=== PATIENT | male | born 1960 | race Caucasian/White ===

== ENCOUNTER 2018-08-12 07:42 | Day surgery (SDC) | payer BC, OTHER ==
[2018-08-12] MEDS ORDERED: LR 1,000 ML IV ONE (07:54)
--- NOTE | 2018-08-12 08:48 | PDGENHP ---
History & Physical Chief Complaint: phx polyps History of Present Illness: hx large flat polyps Pertinent Past, Social, Family History: tobacco 1/2 pack poer day. no alcohol. FHx - aadopted. PMH- hypothyroid Relevant Physical Exam: A+Ox3. CTA. S1S2. +BS,. soft nt Cardiorespiratory Assessment: class 2
--- NOTE | 2018-08-12 08:54 | PDANEPAE ---
ANE History of Present Illness here for colonoscopy ANE Past Medical History - Cardiovascular History Hx Hypertension: No Hx Arrhythmias: No Hx Chest Pain: No Hx Coronary Artery / Peripheral Vascular Disease: No Hx CHF / Valvular Disease: No Hx Palpitations: No - Pulmonary History Hx COPD: No Hx Asthma/Reactive Airway Disease: No Hx Recent Upper Respiratory Infection: No Hx Oxygen in Use at Home: No Hx Sleep Apnea: No Sleep Apnea Screening Result - Last Documented: Negative - Neurologic History Hx Cerebrovascular Accident: No Hx Seizures: No Hx Dementia: No - Endocrine History Hx Diabetes: No - Renal History Hx Renal Disorders: No - Liver History Hx Hepatic Disorders: No - Neurological & Psychiatric Hx Hx Neurological and Psychiatric Disorders: No - Cancer History Hx Cancer: No - Congenital Disorder History Hx Congenital Disorders: No - GI History Hx Gastrointestinal Disorders: No - Other Health History Other Health History: none - Chronic Pain History Chronic Pain: No - Surgical History Prior Surgeries: none in last 5 yrs. colonoscopies ANE Review of Systems Review of Systems: - Exercise capacity METS (RN): 5 METS ANE Patient History - Allergies Allergies/Adverse Reactions: No Known Allergies Allergy (Verified 08/09/18 09:58) - Home Medications Home Medications: Synthroid 08/09/18 [Last Taken 08/12/18 06:00] - NPO status NPO Status: no food or drink >8 hours NPO Since - Liquids (Date): 08/11/18 NPO Since - Solids (Date): 08/11/18 - Anes Hx Anes Hx: no prior problems - Smoking Hx Smoking Status: Heavy smoker - Alcohol Use Alcohol Use: Rarely - Family Anes Hx Family Anes Hx: none Family Hx Anesthesia Complications: none ANE Labs/Vital Signs - Vital Signs Blood Pressure: 117/79 Heart Rate: 53 Respiratory Rate: 15 O2 Sat (%): 93 Height: 177.8 cm Weight: 74.843 kg ANE Physical Exam - Airway Neck exam: FROM Mallampati Score: Class 2 Mouth exam: normal dental/mouth exam - Pulmonary Pulmonary: no respiratory distress, clear to auscultation - Cardiovascular Cardiovascular: regular rate and rhythym, no murmur, rub, or gallop - ASA Status ASA Status: II ANE Anesthesia Plan Anesthesia Plan: GA with mask Total IV Anesthesia: Yes
[2018-08-12] MEDS ORDERED: PROPOFOL/EMULSION 500 MG/50 ML BOTTLE IV ONE (08:57)
[2018-08-12] MEDS ORDERED: NALOXONE HCL 0.4 MG/ML INJ IVP PRN (09:07)
--- NOTE | 2018-08-12 09:45 | POSTANESTH ---
Post Anesthetic Evaluation Cardiovascular Status: Normal, Stable, Similar to Pre-Op Cond Respiratory Status: Normal, Stable, Similar to Pre-op Cond. Level of Consciousness/Mental Status: Moderately Sleepy Pain Control: Adequate, Prn Tx Ordered Nausea/Vomiting Control: Adequate, Prn Tx Ordered Complications Possibly Related to Anesthesia: None Noted
--- NOTE | 2018-08-12 09:55 | GIREPORT ---
[facility] Surgical Services - Endoscopy Department Patient Name: Chalo Jackson Procedure Date: 08/12/2018 9:00 AM Patient Type: Outpatient Attending / ER Physician: Marcos Acosta MD Procedure: Colonoscopy Indications: High risk colon cancer surveillance: Personal history of adenoma (10 mm or greater in size) Providers: Marcos Acosta MD Medicines: Propofol per Anesthesia Complications: No immediate complications. Estimated blood loss: Minimal. Description of Procedure: After obtaining informed consent, the scope was passed under direct vis ion. Throughout the procedure, the patient's blood pressure, pulse, and oxyg en saturations were monitored continuously. The Colonoscope with irrigatio n channel was introduced through the anus and advanced to the terminal il eum, with identification of the appendiceal orifice and IC valve. The colono scopy was performed without difficulty. The patient tolerated the procedure w ell. The quality of the bowel preparation was good. Findings: The digital rectal exam was normal. The terminal ileum appeared normal. A 5 mm polyp was found in the cecum. The polyp was semi-sessile. The po lyp was removed with a cold snare. Resection and retrieval were complete. Estimated blood loss was minimal. A 20 mm polyp was found in the mid ascending colon. The polyp was sessi le. The polyp was removed with a piecemeal technique using a hot snare. Reji yp resection was incomplete. The resected tissue was retrieved. Fulguratio n to ablate the lesion remnants by snare was successful. Area was tattooed w ith an injection of 3 mL of Damaris ink. Estimated blood loss was minimal. A 3 mm polyp was found in the hepatic flexure. The polyp was sessile. T he polyp was removed with a cold biopsy forceps. Resection and retrieval w ere complete. Estimated blood loss was minimal. A post polypectomy scar was found in the proximal transverse colon. The scar tissue was healthy in appearance. There was no evidence of the previous polyp. A few medium-mouthed diverticula were found in the sigmoid colon and descending colon. Non-bleeding internal hemorrhoids were found during retroflexion. The exam was otherwise without abnormality. Estimated Blood Loss: Estimated blood loss was minimal. Post Op Diagnosis: - The examined portion of the ileum was normal. - One 5 mm polyp in the cecum, removed with a cold snare. Resected and retrieved. - One 20 mm polyp in the mid ascending colon, removed piecemeal using a hot snare. Incomplete resection. Resected tissue retrieved. Treated with a hot snare. Tattooed. - One 3 mm polyp at the hepatic flexure, removed with a cold biopsy for ceps. Resected and retrieved. - Post-polypectomy scar in the proximal transverse colon. - Diverticulosis in the sigmoid colon and in the descending colon. - Non-bleeding internal hemorrhoids. - The examination was otherwise normal. Recommendation: - Await pathology results. - My office will call with the pathology result with 5-7 days. If you h ave not heard from my office by 12-14, do not assume the pathology is omer l, please call [phone] to get the pathology results. - Repeat colonoscopy in 1 year for surveillance after piecemeal polypec eileen. - Refer to Dr. Oliveira and Kaylin Bravo PA-C in our genetic clinic give n significant PHx of polyps. - High fiber diet indefinitely. - 30-35 grams of dietary fiber per day. Can use supplemental fiber. - A high fiber diet may decrease risk of complications from diverticulo sis. There is no need to avoid seeds or nuts. - Patient has a contact number available for emergencies. The signs and symptoms of potential delayed complications were discussed with the pat milena. Return to normal activities tomorrow. Written discharge instructions we re provided to the patient. - Continue present medications. - Avoid Aspirin and NSAID's for 7-10 days except as used for cardiac or stroke prevention. - If pathology reveal adenomatous tissue, then all first degree relativ e should have screening colonoscopy starting at age 40 - Discharge patient to home (ambulatory). - Return to primary care physician as previously scheduled. - Thank you for allowing me to help in your patient's care. Do not hesi radford to call with any questions. Attending Participation: I personally performed the entire procedure. Dave Mobley M.D Marcos Acosta MD 08/12/2018 9:55:16 AM This report has been signed electronicallyMattmarisol Acosta MD Number of Addenda: 0 Note Initiated On: 08/12/2018 9:00 AM Total Procedure Duration Time 0 hours 35 minutes 24 seconds [email or web address]
[2018-08-12 11:11] VITALS: BP 122/67
== END 2018-08-12 11:11 | disposition home or self-care (01) ==
LOC: FSGY 07:42
PROVIDERS: ATTEND Internal Medicine Gastroenterology
DX: Z12.11 Encounter for screening for malignant neoplasm of colon (principal); Z86.010 Personal history of colon polyps; D12.0 Benign neoplasm of cecum; D12.2 Benign neoplasm of ascending colon; D12.3 Benign neoplasm of transverse colon; K57.30 Diverticulosis of large intestine without perforation or abscess without bleeding; E03.9 Hypothyroidism, unspecified; Z87.891 Personal history of nicotine dependence
CPT/HCPCS: J2704